=== PATIENT | male | born 1955 | race Two or more races ===

== ENCOUNTER 2018-12-31 22:29 | Inpatient (IN) | payer BC ==
[~2018-12-31] VITALS: Ht 182.9 cm; Wt 93.9 kg
--- NOTE | 2018-12-31 22:35 | NUR ---
PT CAME INTO ER VIA RA WITH C/O OF ALMOST FAINTING IN BED AFTER USING THE RESTROOM. PT STATES THAT HE THREW UP AN HOUR AGO. PT STATES THAT HE FEELS DIZZY. AAOX4. NO SOB. PT HAS HX OF HTN. NOT IN ANY DISTRESS. WILL CONTINUE TO MONITOR.
[2018-12-31 22:52] LABS: BASOPHILS # (AUTO) 0.1 /CMM (0.0-0.2); BASOPHILS % (AUTO) 0.7 % (0.0-2.0); EOSINOPHILS % (AUTO) 1.4 % (0.0-6.0); HEMATOCRIT 49 % (39-51); HEMOGLOBIN 16.7 g/dL (13.5-17.5); LYMPHOCYTES # (AUTO) 0.5 /CMM (0.8-4.8); LYMPHOCYTES % (AUTO) 6.1 % (20.0-44.0); MEAN CORPUSCULAR HGB CONC 34 g/dl (31.0-36.0); MEAN CORPUSCULAR VOLUME 90 fL (80-96); MONOCYTES # (AUTO) 0.3 /CMM (0.1-1.30); MONOCYTES % (AUTO) 3.8 % (2.0-12.0); NEUTROPHILS # (AUTO) 7.2 /CMM (1.8-8.9); PLATELET COUNT (AUTO) 215 /CMM (150-450); RED BLOOD CELL COUNT(AUTO) 5.47 MIL/uL (4.5-6.0); WHITE BLOOD COUNT (AUTO) 8.1 K/uL (4.3-11.0)
[2018-12-31 23:00] LABS: CALCIUM, SERUM 9.2 mg/dL (8.5-10.1); CARBON DIOXIDE 28 mmol/L (21-32); CHLORIDE 100 mmol/L (98-107); CREATININE 1.1 mg/dL (0.6-1.3); GLUCOSE 206 mg/dL (74-106); POTASSIUM 3.3 mmol/L (3.5-5.1); SODIUM SERUM 138 mmol/L (136-145); UREA NITROGEN, BLOOD 16 mg/dL (7-18)
[2018-12-31] MEDS ORDERED: IV NS 0.9% 500 ML BAG IV ONE (23:00)
--- NOTE | 2018-12-31 23:04 | NUR ---
PT HAS POTASSIUM OF 3.3, DR. CRAVEN NOTIFIED. NO ORDERS GIVEN
[2018-12-31 23:05] LABS: ALANINE AMINOTRANSFERASE 104 U/L (12-78); ALBUMIN 3.9 g/dL (3.4-5.0); ALKALINE PHOSPHATASE 64 U/L (46-116); ASPARTATE AMINOTRANSFERASE 74 U/L (15-37); BILIRUBIN,DIRECT 0.1 mg/dL (0.0-0.2); BILIRUBIN,TOTAL 0.3 mg/dL (0.2-1.0); TOTAL PROTEIN, SERUM 7.4 g/dL (6.4-8.2)
--- NOTE | 2019-01-01 00:10 | NUR ---
FAMILY: HEVER [phone]. CALL FAMILY WITH UPDATE
--- NOTE | 2019-01-01 00:28 | NUR ---
TELE 304-2
[2019-01-01] MEDS ORDERED: IV 1/2NS 1000 ML 1,000 ML IV PRN (00:51)
--- NOTE | 2019-01-01 00:51 | NUR ---
REPORT GIVEN TO KETAN AVILA FOR CODY.
[2019-01-01] MEDS ORDERED: DEXTROSE 50%-WATER 50 ML DISP.SYRIN IV PRN (01:00)
[2019-01-01] MEDS ORDERED: ZOLPIDEM TARTRATE 5 MG TABLET PO PRN (01:00)
[2019-01-01] MEDS ORDERED: INSULIN REGULAR, HUMAN 100 UNIT/ML 3 ML VIAL SQ PRN (01:00)
[2019-01-01] MEDS ORDERED: MAG HYDROX/AL HYDROX/SIMETH 30 ML UDC PO PRN (01:00)
[2019-01-01] MEDS ORDERED: ONDANSETRON HCL/PF 4 MG/2 ML VIAL IVP PRN (01:00)
[2019-01-01] MEDS ORDERED: ACETAMINOPHEN 325 MG TABLET PO PRN (01:00)
[2019-01-01] MEDS ORDERED: HYDROCODONE/APAP 5/325MG 1 EACH TABLET PO PRN (01:00)
[2019-01-01] MEDS ORDERED: MORPHINE SULFATE INJ 2 MG/ML DISP.SYRIN IV PRN (01:00)
[2019-01-01] MEDS ORDERED: MAGNESIUM HYDROXIDE 30 ML UDC PO PRN (01:00)
--- NOTE | 2019-01-01 01:13 | NUR ---
DR. CRAVEN. SPOKE W/ PT.
[2019-01-01] MEDS ORDERED: ENOXAPARIN SODIUM 40 MG/0.4 ML DISP.SYRIN SQ ONE (01:30)
[2019-01-01] MEDS ORDERED: POTASSIUM CHLORIDE 20 MEQ TAB.PRT.SR PO ONE (01:30)
[2019-01-01 01:45] VITALS: BP 156/88
--- NOTE | 2019-01-01 01:45 | NUR ---
ADMISSION 63 Y/O male admitted for near syncope. Patient is A/O x4, denies pain. Leads applied for Tele monitor. Tolerating RA. Orientation to room, units, staff. Skin intact. Instructed to use call light for assistance, verbalized understanding.
[2019-01-01 04:00] VITALS: BP 149/85
[2019-01-01 05:52] LABS: APPEARANCE,URINE CLEAR (CLEAR); BILIRUBIN,URINE NEGATIVE (NEGATIVE); BLOOD, URINE TRACE-INTA Ery/uL (NEGATIVE); COLOR,URINE YELLOW (YELLOW); KETONES,URINE NEGATIVE (NEGATIVE); LEUKOCYTE ESTERASE ,URINE NEGATIVE (NEGATIVE); NITRITE, URINE NEGATIVE (NEGATIVE); PROTEIN,URINE NEGATIVE (NEGATIVE); UGLUCOSE NEGATIVE (NEGATIVE)
[2019-01-01 06:03] LABS: BACTERIA,URINE Few /HPF (None Seen); SQUAMOUS EPITHELIAL CELL,UR Rare /HPF (None Seen)
[2019-01-01 06:04] LABS: CALCIUM OXALATE CRYSTALS,UR Few /HPF (None Seen)
--- NOTE | 2019-01-01 06:24 | NUR ---
END OF SHIFT REPORT Patient in bed, stable oxygen saturation on RA. Sinus Rhythm HR68 in the Tele monitor. IVF infusing, low Potassium, given PO Potassium 40meq x1. Ambulates independently, denies pain, no episode of syncope. Urine send to lab for test. Maintained safety.
[2019-01-01 06:26] LABS: BASOPHILS % (AUTO) 0.5 % (0.0-2.0); EOSINOPHILS % (AUTO) 2.4 % (0.0-6.0); HEMATOCRIT 47 % (39-51); HEMOGLOBIN 15.9 g/dL (13.5-17.5); LYMPHOCYTES # (AUTO) 0.8 /CMM (0.8-4.8); LYMPHOCYTES % (AUTO) 12.4 % (20.0-44.0); MEAN CORPUSCULAR HGB CONC 34 g/dl (31.0-36.0); MEAN CORPUSCULAR VOLUME 89 fL (80-96); MONOCYTES # (AUTO) 0.9 /CMM (0.1-1.30); MONOCYTES % (AUTO) 14.1 % (2.0-12.0); NEUTROPHILS # (AUTO) 4.7 /CMM (1.8-8.9); NEUTROPHILS % (AUTO) 70.6 % (43.0-81.0); PLATELET COUNT (AUTO) 225 /CMM (150-450); RED BLOOD CELL COUNT(AUTO) 5.31 MIL/uL (4.5-6.0); WHITE BLOOD COUNT (AUTO) 6.6 K/uL (4.3-11.0)
[2019-01-01 06:39] LABS: ALBUMIN 3.5 g/dL (3.4-5.0); BILIRUBIN,TOTAL 0.3 mg/dL (0.2-1.0); CALCIUM, SERUM 8.8 mg/dL (8.5-10.1); MAGNESIUM 1.8 mg/dL (1.8-2.4); PHOSPHORUS 2.9 mg/dL (2.5-4.9); POTASSIUM 4.1 mmol/L (3.5-5.1); TOTAL PROTEIN, SERUM 6.9 g/dL (6.4-8.2)
[2019-01-01 06:53] LABS: THYROID STIMULATING HORMONE 1.105 uIU/mL (0.358-3.74)
--- NOTE | 2019-01-01 07:20 | NUR ---
HOUSEHOLD MANAGER NOTES PATIENT RECEIVED RESTING IN BED A/O x4. NO SIGNS OF DISTRESS AND NO CURRENT COMPLAINTS OF PAIN OR NAUSEA. SINUS RHYTHM 76. IV LOCATED ON RIGHT AC #20 INFUSING NS. SAFETY PRECAUTIONS ARE IN PLACE WITH BED IN LOWEST POSITION, SIDE RAILS UP x2, AND CALL LIGHT WITHIN REACH. WILL CONTINUE TO MONITOR THROUGHOUT SHIFT.
[2019-01-01] MEDS ORDERED: PANTOPRAZOLE 40 MG TABLET.DR PO SCH (07:30)
[2019-01-01] MEDS: BLOOD SUGAR DIAGNOSTIC 1 EACH STRIP IN SCH ×2 (07:38→11:58)
--- NOTE | 2019-01-01 07:55 | NUR ---
TEASEL GIG OPERATOR NOTES FINGER STICK BLOOD SUGAR LEVEL WAS 144, ADMINISTERED 2 UNITS OF INSULIN REGULAR ADMINISTERED PER SLIDING SCALE ON RIGHT UPPER QUADRANT OF ABDOMEN.
[2019-01-01 08:00] VITALS: BP 142/87
[2019-01-01] MEDS ORDERED: AMLO5TAB9 PO (08:03)
[2019-01-01] MEDS ORDERED: METF-440 PO (08:03)
[2019-01-01] MEDS ORDERED: ALLO100T PO (08:03)
[2019-01-01] MEDS ORDERED: HYDR25TA4 PO (08:03)
[2019-01-01] MEDS ORDERED: ATOR10TA PO (08:03)
[2019-01-01] MEDS ORDERED: LOSA100T31 PO (08:03)
[2019-01-01] MEDS ORDERED: IV NS 0.9% 1,000 ML IV PRN (08:40)
[2019-01-01 09:00] VITALS: BP 142/87
[2019-01-01] MEDS ORDERED: AMLODIPINE BESYLATE 5 MG TABLET PO SCH (09:00)
[2019-01-01] MEDS ORDERED: ALLOPURINOL 100 MG TABLET PO SCH (09:00)
[2019-01-01] MEDS ORDERED: LOSARTAN POTASSIUM 50 MG TABLET PO SCH (09:00)
[2019-01-01] MEDS ORDERED: METFORMIN 500 MG TABLET PO SCH (09:00)
--- NOTE | 2019-01-01 09:51 | NUR ---
M/S RN NOTES MEDICATIONS NOT GIVEN PATIENT IS NPO FOR ABDOMINAL ULTRA SOUND.
--- NOTE | 2019-01-01 14:37 | NUR ---
M/S RN NOTES PATIENT DISCHARGED HOME IN STABLE CONDITION. NO COMPLAINTS OF PAIN, DIZZINESS, NAUSEA. PATIENT WAS ABLE TO AMBULATE INDEPENDENTLY AND I ACCOMPANIED PATIENT DOWNSTAIRS FOR HIS UBER AT 1425. IV LINE AND MEDICAL BAND REMOVED BEFORE LEAVING. ALL BELONGINGS WERE ACCOUNT FOR AND SIGNED FOR.PACKET WAS GIVEN WITH DISCHARGE INSTRUCTIONS AND EDUCATION WAS PROVIDED, PATIENT VERBALIZED UNDERSTANDING.
[2019-01-01] MEDS ORDERED: ENOXAPARIN SODIUM 40 MG/0.4 ML DISP.SYRIN SQ SCH (21:00)
== END 2019-01-01 14:22 | disposition home or self-care (01) | DRG 641 ==
LOC: ER 22:29 → TELE 01-01 00:42 → MED 01-01 09:44
PROVIDERS: ADMIT Hospitalist; ATTEND Hospitalist
DX: E86.0 Dehydration (principal); K29.70 Gastritis, unspecified, without bleeding; M10.9 Gout, unspecified; E11.9 Type 2 diabetes mellitus without complications; I10 Essential (primary) hypertension; F17.210 Nicotine dependence, cigarettes, uncomplicated; R74.0 Nonspecific elevation of levels of transaminase and lactic acid dehydrogenase [LDH]; R55 Syncope and collapse; R16.0 Hepatomegaly, not elsewhere classified; K76.0 Fatty (change of) liver, not elsewhere classified; N28.1 Cyst of kidney, acquired
CPT/HCPCS: 36415; 70450-TC; 71045-TC; 76700-TC; 80048-TC; 80053-TC; 80061-TC; 80076-TC; 81000-TC; 82962-TC; 83690-TC; 83735-TC; 84100-TC; 84443-TC; 84484-TC; 85025-TC; 87081-TC; 87086-TC; 93307-TC; 97116-TC; 97530-TC; G0378; J1650; J1815; J3490; J7030; J7040